=== PATIENT | female | born 1980 | race Native Hawaiian/Other Pacific Islander ===

== ENCOUNTER 2021-10-15 14:30 | Emergency (ER) | payer BC ==
[~2021-10-15] VITALS: Ht 172.7 cm; Wt 121.6 kg
[2021-10-15 14:35] VITALS: TEMP 97.1
[2021-10-15 16:45] VITALS: BP 138/76
== END 2021-10-15 16:50 | disposition home or self-care (01) ==
LOC: ED 14:30
DX: G44.209 Tension-type headache, unspecified, not intractable (principal)
CPT/HCPCS: 85652; 96372; 99283; J1200; J1885; J2405

== ENCOUNTER 2022-01-08 19:10 | Emergency (ER) | payer BC ==
[~2022-01-08] VITALS: Ht 172.7 cm; Wt 120.7 kg
[2022-01-08 20:32] VITALS: BP 134/73; TEMP 98
== END 2022-01-08 20:32 | disposition home or self-care (01) ==
LOC: ED 19:10
DX: Z51.89 Encounter for other specified aftercare (principal)
CPT/HCPCS: 99282